=== PATIENT | male | born 1945 | race Caucasian/White ===

== ENCOUNTER → 2017-03-19 | Outpatient (CLI) | payer MEDICARE, BC ==
[~2017-03-19] MED LIST: CALC-652 PO; GLUC1CAP25 PO; OMEG100016 PO
--- NOTE | 2017-03-19 08:24 | DI ---
Indication: ITS.REASON: I73.9 Peripheral vascular disease, uns; M25.561 PAIN IN RIGHT LEG PROCEDURE: US ARTERIAL EXTREMITY LOWER RT: Technique: Grayscale color and duplex Doppler imaging was performed of the arterial tree of both legs. Findings: RIGHT LEG (cm/sec) Common Femoral 103 Superficial Femoral Proximal 88 Mid 76 Distal 73 Popliteal 52 JAVIER-prox 56 [employer]CREATION [employer]ER[employer]IDES TEACHER-prox 47 JAVIER-dist 68 RECREATION THER[employer] AIDES TEACHER-dist 62 Normal multiphasic waveforms in the right lower extremity arteries. No flow velocity elevation or occlusion. IMPRESSION: Normal exam .
== END ==
LOC: IMA 07:28
PROVIDERS: ATTEND Internal Medicine
DX: I73.9 Peripheral vascular disease, unspecified (principal); M25.561 Pain in right knee

== ENCOUNTER → 2017-04-10 | Outpatient (CLI) | payer MEDICARE, BC ==
--- NOTE | 2017-04-10 13:04 | DI ---
EXAM: MRI LUMBAR SPINE W/O CONTRAST LOCATION OF DICTATION: [facility] – [place]. COMPARISON: None available. HISTORY: ITS.REASON: M54.17 RADICULOPATHY, LUMBOSACRAL REGION TECHNIQUE: Sagittal T-1, T-2, T-2 fat saturation or STIR weighted, and T-2 images were obtained through the lumbar spine. FINDINGS: Lumbar vertebral body heights are well-maintained. There is mild anterolisthesis of L4 on L5. Sagittal images through the neural foramina, shows no significant neural foraminal narrowing. There is mild hypointense T1 and hyperintense T2 signal changes at the superior endplate of L4 which may be related to developing Schmorl's node formation. Axial images obtained at L1-2, shows no significant spinal canal stenosis. L2-3, no significant spinal canal stenosis. At L3-4, disc bulge and ligamentum flavum hypertrophy contribute to mild to moderate spinal canal stenosis. At L4-5, facet hypertrophic changes and ligament hypertrophy and mild disc bulge contributes to mild to moderate spinal canal stenosis. At L5-S1, no significant spinal canal stenosis. No prevertebral soft tissue bodies are identified. IMPRESSION: 1. At L3-4 disc bulge and ligamentum flavum hypertrophy contributing to mild to moderate spinal canal stenosis. 2. At L4-5 there is mild anterolisthesis of L4 on L5 which may be from facet hypertrophic change. Ligamentum flavum hypertrophy and disc bulge at this level and facet hypertrophic changes contribute to mild to moderate spinal canal stenosis. .
== END ==
LOC: IMA 06:38
PROVIDERS: ATTEND Internal Medicine
DX: M48.06 Spinal stenosis, lumbar region (principal); M51.16 Intervertebral disc disorders with radiculopathy, lumbar region; M43.16 Spondylolisthesis, lumbar region

== ENCOUNTER → 2017-04-17 | Outpatient (CLI) | payer MEDICARE, BC ==
[~2017-04-17] MED LIST changes: +IOHEXOL 180 MG/ML 20ml INJECTION ONE; +LIDOCAINE 1% (10mg/ml) 5ml VIAL ONE; +MethylPREDNISolone ACETATE 40mg/1ml ONE
--- NOTE | 2017-04-17 13:52 | DI ---
Indication:ITS.REASON: M54.17 Radiculopathy, lumbosacral region Procedure:EPIDURAL INJ.SPINE W FLUO CATH LUMBAR EPIDURAL INJECTION: The patient has low back and radicular pain. The patient has not had any previous epidurals. The details of the procedure, including the benefits, risks, and alternatives were explained to the patient. All of their questions were answered. They stated that they understood and wished to proceed. Informed consent was then obtained. A pre-procedural timeout was performed to confirm the correct patient and procedure. Utilizing aseptic technique, local lidocaine anesthetic, and fluoroscopic guidance throughout, a 22-gauge spinal needle was directed into the lumbar epidural space via an interlaminar approach at the L4-5 level. Contrast was injected to assure proper positioning of the needle tip. A fluoroscopic image was then taken and archived. Subsequently, 120 mg Depo-Medrol was injected into the epidural space. The patient tolerated the procedure well. IMPRESSION: Successful lumbar epidural steroid injection. Fluoroscopy dose: 16.77 mGy (Cumulative air kerma) Vadim Farrell RPA/RAMYA performed this under my personal supervision. .
== END ==
LOC: IMA 12:25
PROVIDERS: ATTEND Internal Medicine
DX: M54.17 Radiculopathy, lumbosacral region (principal); M54.5 Low back pain
CPT/HCPCS: 62323; J1030; Q9965